=== PATIENT | female | born 1995 | race Caucasian/White ===

== ENCOUNTER 2017-04-22 08:00 | Inpatient (IN) ==
[2017-04-22] MEDS ORDERED: miSOPROStol 25 MCG TABLET VG PRN (08:32)
[2017-04-22] MEDS ORDERED: Famotidine 20 MG/2 ML VIAL IVP PRN (08:32)
[2017-04-22] MEDS ORDERED: Metoclopramide 10 MG/2 ML VIAL IVP PRN (08:32)
[2017-04-22] MEDS ORDERED: *HR* Nalbuphine 20 MG/ML AMPUL IVP PRN (08:32)
[2017-04-22 08:46] LABS: Basophils % 0.3 %; Eosinophils # 0.2 K/mcL (0.0-0.6); Eosinophils % 1.5 %; Hematocrit 34.2 % (35.3-44.9); Hemoglobin 10.2 g/dL (11.5-15.4); Immature Granulocytes % 0.6 % (0-4); Lymphocytes # 3.5 K/mcL (0.6-4.6); Mean Corpuscular HGB Conc 29.8 g/dL (31.6-35.5); Mean Corpuscular Hemoglobin 22.8 pg (28.0-33.3); Mean Corpuscular Volume 76.5 fL (83.0-100.0); Mean Platelet Volume 10.9 fL (9.4-12.4); Monocytes # 1.2 K/mcL (0.0-1.3); Monocytes % 8.1 %; Neutrophils # 9.5 K/mcL (1.6-8.9); Platelet Count 389 K/mcL (140-400); Red Blood Count 4.47 M/mcL (3.82-4.97); Red Cell Distribution Width 15.6 % (11.5-14.5); Segmented Neutrophils % 65.5 %
[2017-04-22 08:54] LABS: Amphetamine Screen,Urine Negative ng/mL (Cutoff=1000); Barbiturate Screen,Urine Negative ng/mL (Cutoff=200); Benzodiazepines Screen,Urine Negative ng/mL (Cutoff=200); Cannabinoid Screen,Urine Negative ng/mL (Cutoff = 50); Cocaine Screen,Urine Negative ng/mL (Cutoff= 300); Opiate Screen,Urine Negative ng/mL (Cutoff=300); Phencyclidine Screen,Urine Negative ng/mL (Cutoff=25)
[2017-04-22] MEDS: Ringers Solution, Lactated 1,000 ML IVC SCH ×2 (09:19→20:16)
--- NOTE | 2017-04-22 09:27 | OB/GYN History & Physical ---
Date of Encounter: 04/22/17 Time of Encounter: 09:25 Assessment and Plan (1) First in adolescent 16 years of age or older in third trimester Current visit: Yes Status: Acute (2) Postmaturity , 40-42 weeks gestation Current visit: Yes Status: Acute (3) Elective induction of labor planned Current visit: Yes Status: Acute Plan is to induce patient with a Lopez catheter and Cytotec and to anticipate vaginal delivery History of Present Illness HPI: Ms. Gutierrez is a 21 year old female 1 para 0 at 40-3/7 weeks by a 9 and 0 some pelvic ultrasound who presented for induction of labor secondary to post dates. Patient was advised if she got past the due date we would find a time to bring her in and deliver her. Patient was a good 2 cm in the office she denies any leaking of fluid still having good movement occasional contractions no bleeding or discharge. Patient is A+ rubella negative GBS negative. Patient will need a rubella shot prior to leaving the hospital. Past Med Surg Social Fam HX - Past Medical History Source: patient, old records reviewed Medical history: no medical history Psychiatric history: no psych history - Past Surgical History Surgical History: other ([place] teeth, knee surgery) - Social History Smoking Status: Former smoker Smokeless Tobacco Status: No Alcohol use: none Drug use: none Occupational status: unemployed Current living situation: Home - Independent Activity Level: Independent ambulation Recent Out of Country Travel Within the Last 8 Weeks: No Exposure or Possible Exposure to Illness During Travel: No Obstetrical History - Pregnancies : 1 Para: 0 Medications and Allergies Ranitidine HCl 150 mg PO DAILY 04/22/17 [History] Tylenol 650 mg PO PRN PRN 04/22/17 [History] 3 Allergy/AdvReac Type Severity Reaction Status Date / Time No Known Allergies Allergy Verified 04/22/17 08:30 Review of System OB All systems PM: reviewed and no additional remarkable complaints except as stated Exam - Constitutional Constitutional: well developed, well nourished, no acute distress, average body habitus - HEENT HEENT: EOMI, PERRL, Mucus Membranes Moist - Neck Neck exam: full ROM - Lungs Respiratory exam: CTAB - Cardiovascular Cardiovascular exam: RRR - Abdomen Abdomen: Present: bowel sounds normal, gravid - Cervix Dilation: 2 Effacement: 80 Station: -2 - Comments Comments: Lopez catheter placed with 30 mL balloon inflated and 25 g of Cytotec placed in the posterior fornix. heart tones 140s reactive occasional contractions and Results Result Diagrams: 04/22/17 08:38 Abnormal lab results WBC 14.5 K/mcL (4.3-11.1) H 04/22/17 08:38 Hgb 10.2 g/dL (11.5-15.4) L 04/22/17 08:38 Hct 34.2 % (35.3-44.9) L 04/22/17 08:38 MCV 76.5 fL (83.0-100.0) L 04/22/17 08:38 MCH 22.8 pg (28.0-33.3) L 04/22/17 08:38 MCHC 29.8 g/dL (31.6-35.5) L 04/22/17 08:38 RDW 15.6 % (11.5-14.5) H 04/22/17 08:38 Neutrophils # 9.5 K/mcL (1.6-8.9) H 04/22/17 08:38 All other labs normal. - VTE Reasons for not Prescribing Prophylaxis: Treatment not Indicated - Low risk for VTE
--- NOTE | 2017-04-22 10:57 | Anesthesia Evaluation PreOp ---
Date of Encounter: 04/22/17 Time of Encounter: 10:56 - Past History Planned Operation: NATHAN Cardiac History: Denies any Significant Hx Pulmonary History: Denies Any Significant HX BUSINESS CONTINUITY STRATEGY DIRECTOR History: Denies Any Significant HX Other Medical History: Denies Any Significant HX Anesthesia History: No Prior Anesthetic Complications Alcohol Use: none Drug use: none Medications and Allergies Ranitidine HCl 150 mg PO DAILY 04/22/17 [History] Tylenol 650 mg PO PRN PRN 04/22/17 [History] 3 Allergy/AdvReac Type Severity Reaction Status Date / Time No Known Allergies Allergy Verified 04/22/17 08:30 - Meds/Allergy Pre-op Review Medications Reviewed: Yes Allergies Reviewed: Yes Beta Blockers on Current Med List: No Anesthesia Results - Labs 04/22/17 08:38 Anesthesia Exam Height: 1.65m Weight: 110kg NPO (# of Hours): 5 Pain Scale: 3 Pain Scale Used: Numeric (1 - 10) - HEENT Pupil (Motor): Pupils equal Mallampati: II Teeth: Normal Oral Opening: Greater than 3 - BUSINESS CONTINUITY STRATEGY DIRECTOR LOC: Oriented BUSINESS CONTINUITY STRATEGY DIRECTOR Motor: Normal RUE, Normal LUE, Normal RLE, Normal LLE, Normal Face BUSINESS CONTINUITY STRATEGY DIRECTOR Sensory: Normal: RUE, LUE, RLE, LLE, Face - Cardiac Rhythm: Regular Murmur: None JVD: No Carotid Bruit: No - Pulmonary Breath Sounds: bilateral Clear Respiratory Effort: Symmetrical Anesthesia Assess/Plan ASA Score: 3 Modified Hedley Scale for Level of Consciousness: Cooperative, oriented, and tranquil Anesthetic Plan: General (plan b), Regional (plan a) Autologous Blood: Yes Monitoring Plan: Standard Monitors
[2017-04-22] MEDS ORDERED: Epidural Premix (fent/bupiv) 110 ML EP ONE ×2 (11:27→20:21)
--- NOTE | 2017-04-22 12:17 | OB Labor Progress Note ---
Date of Encounter: 04/22/17 Time of Encounter: 12:10 Labor Progress Note - Subjective Subjective: Patient's doing well does not want an epidural yet ipke catheter is out - Cervix Cervix: 5/90/-2 AROM clear fluid - Heart Tones Heart Tones: heart tones 140s reactive - [place]: Contractions every 2 minutes - Plan Plan: We will continue current care we will get epidural when patient's more uncomfortable plan is to anticipate vaginal delivery
--- NOTE | 2017-04-22 14:03 | Anesthesia Procedures ---
Date of Encounter: 04/22/17 Time of Encounter: 14:01 Procedures: Anesthesia - Epidural/Spinal Patient ID/Chart reviewed: Yes Patient examined: Yes OB Eval: Gestational age: 40.3 OB Eval: : 1 OB Eval: Hx Para: 0 OB Eval: Dilated at (cm): 5 OB Eval: Contractions: Non-stressed pattern Consent Obtained: Yes Supplemental Oxygen: None/Room Air Site Prep: Aseptic Technique, Sterile prep and drape, Povidone-Iodine 1% Patient position: upright Local Anesthetic: Lidocaine 1% Amount of Local Anesthetic used: 3 Touhy Needle Gauge: 18 Touhy Needle Depth (cm): 8 Catheter Depth at Skin (cm): 19 Test Dose (1.5% Lido + Epi): Volume given (mls): 5 Test Dose Result: Negative Loading Dose: Other: 5ml of epidural pharm bag premix solution Loading Dose Administered: Thru Catheter Infusion Med: 0.125% Bupivacaine w/ 2 mcg/ml Fentanyl Infusion Rate (mls/hr): 14 ([id number]) Catheter Secured in Place: Tegaderm, Tape Interspace Used: L4-L5 Loss of Resistance (ANNIE): Yes Blood: No CSF: No Paresthesia: No Procedure: pt tolerated procedure well. no complications. vss. fhr stable.
[2017-04-22] MEDS ORDERED: Ondansetron 4 MG/2 ML VIAL IVP PRN (14:39)
--- NOTE | 2017-04-22 14:42 | OB Labor Progress Note ---
Date of Encounter: 04/22/17 Time of Encounter: 14:40 Labor Progress Note - Subjective Subjective: Patient is getting comfortable after her epidural not feeling the contractions anymore - Cervix Cervix: 5/80/-1 - Heart Tones Heart Tones: heart tones 140s reactive contractions every 2 minutes - [place]: Contractions every 2 minutes - Plan Plan: Continue current care and anticipate vaginal delivery
--- NOTE | 2017-04-22 17:51 | OB Labor Progress Note ---
Date of Encounter: 04/22/17 Time of Encounter: 17:45 Labor Progress Note - Subjective Subjective: Patient still very comfortable with her epidural - Cervix Cervix: 5/90/0 - Heart Tones Heart Tones: heart tones 140s reactive - [place]: Contractions every 2-3 minutes irregular - Plan Plan: We will augment with Pitocin plan is to anticipate vaginal delivery
[2017-04-22] MEDS ORDERED: Oxytocin 20 units/ LR 1000 mL 20 UNIT/1,000 ML BAG IVC SCH (18:00)
[2017-04-22] MEDS ORDERED: Famotidine 20 MG/2 ML VIAL IVP ONE (18:58)
[2017-04-22] MEDS ORDERED: Acetaminophen 325 MG TABLET PO ONE (20:06)
--- NOTE | 2017-04-22 20:26 | OB Labor Progress Note ---
Date of Encounter: 04/22/17 Time of Encounter: 20:25 Labor Progress Note - Subjective Subjective: Patient is still comfortable - Cervix Cervix: 6/90/0 - Heart Tones Heart Tones: heart tones 140s reactive - [place]: Contractions every 2-3 minutes and Pitocin at 6 milliunits - Plan Plan: Continue current care and anticipate vaginal delivery
--- NOTE | 2017-04-22 23:56 | OB/GYN Procedure Note ---
Delivery - Delivery Date: 04/22/17 Provider: Angel Davies Intrapartum events: none Delivery induction: pike, misoprostol Delivery augmentation: rupture of membranes, pitocin Delivery monitor: external FHT, external uterine, internal uterine Anesthesia: local, epidural Estimated Blood Loss: 200 - (s) A Delivery Date: 04/22/17 Delivery Time: 23:35 Presentation: vertex Position: KAYLENE Route of delivery: Gender: Male Viability: Viable Pounds: 8 Ounces: 14 Weight Gram: 4.024 kg at 1 minute: 9 at 5 mins: 9 Shoulder Dystocia: not encountered Placenta: spontaneous Cord: 3 umbilical vessels - Repair Episiotomy: none Laceration Description: Periurethral (right), Perineal - 2nd Degree - Complications Delivery complications: none Delivery comments: Patient is a 21-year-old 1 para 0 at 40-3/7 weeks who presented to labor and delivery for induction of labor secondary to postdates states that with favorable cervix. Patient received an epidural and Cytotec epidural fill out about 2 hours after insertion and patient was a good 4 cm that time patient was artificially ruptured when she was 4-5 large amounts of clear fluid. Patient did receive an epidural contractions spaced out had not made any significant cervical change and Pitocin was started. Once contractions got back into her regular Pattern patient started to progress patient became complete and pushed for a short period of time delivering a viable male in right occiput anterior presentation at 2325. There was no nuchal cord, no meconium, infant was bulb suctioned on the abdomen, Apgars were 9 at 1 minute, 9 at 5 months, infant weight was 8 lbs. 14 oz. Placenta was then delivered spontaneously with a three-vessel cord, portable pinch riveter Dr. Davies, anesthesia epidural local, estimated blood loss 200 mL. She had a right periurethral and a second-degree perineal laceration repaired with 3-0 Vicryl in usual fashion on the perineal laceration and 4-0 Vicryl on the periurethral. Cervix vagina was visualized intact. Patient tolerated delivery well needles and sponge counts were correct 3. She will be observed 2 hours before being taken floor. - Disposition Mom disposition: stable in LDR [place] disposition: stable in LDR
[2017-04-23] MEDS ORDERED: Oxytocin 20 units/ LR 1000 mL 20 UNIT/1,000 ML BAG IVC SCH (00:05)
[2017-04-23] MEDS ORDERED: Measles/Mumps/Rubella Vacc 0.5 ML VIAL SQ PRN (00:05)
[2017-04-23] MEDS ORDERED: *HR* HYDROcodone/Acet 5/325 mg TABLET PO PRN (00:05)
[2017-04-23] MEDS ORDERED: Acetaminophen 325 MG TABLET PO PRN (00:05)
[2017-04-23 03:33] LABS: Basophils % 0.2 %; Eosinophils # 0.1 K/mcL (0.0-0.6); Eosinophils % 0.2 %; Hemoglobin 9.4 g/dL (11.5-15.4); Immature Granulocytes % 0.6 % (0-4); Lymphocytes # 2.6 K/mcL (0.6-4.6); Lymphocytes % 11.4 %; Mean Corpuscular HGB Conc 31.3 g/dL (31.6-35.5); Mean Corpuscular Hemoglobin 23.7 pg (28.0-33.3); Mean Corpuscular Volume 75.6 fL (83.0-100.0); Monocytes # 1.4 K/mcL (0.0-1.3); Monocytes % 6.1 %; Platelet Count 297 K/mcL (140-400); Red Blood Count 3.97 M/mcL (3.82-4.97); Red Cell Distribution Width 15.6 % (11.5-14.5); Segmented Neutrophils % 81.5 %
[2017-04-23 03:34] LABS: Basophils # 0.1 K/mcL (0.0-0.2); Neutrophils # 18.4 K/mcL (1.6-8.9)
[2017-04-23] MEDS: Prenatal Vit/FA 1 EACH TABLET PO SCH (07:38)
[2017-04-23] MEDS: Famotidine 20 MG TABLET PO SCH (07:38)
--- NOTE | 2017-04-23 08:58 | OB/GYN Progress Note ---
Date of Encounter: 04/23/17 Time of Encounter: 08:56 - Assessment and Plan (1) (normal spontaneous vaginal delivery) Current Visit: Yes Status: Acute Doing well s/p . Cont. post care. Subjective - Subjective Principal diagnosis: s/p Interval history: Doing well s/p . Cont. post care. Objective - Latest Vital Signs Latest vital signs: Vital Signs Temp Pulse Resp BP Pulse Ox 04/23/17 07:42 16 04/23/17 07:30 98.2 F 77 16 99/61 04/23/17 03:41 98 F 77 18 93/54 97 04/23/17 02:46 98.3 F 86 18 107/65 98 04/23/17 01:57 97.7 F 79 16 101/64 97 Intake and Output 04/22/17 04/23/17 04/23/17 23:59 07:59 15:59 Intake Total 1000 / 1000 400 / 400 Output Total 2125 / 2125 Balance 1000 / 1000 -1725 / -1725 Intake: IV Fluids 1000 / 1000 Lactated Ringers 1,000 ML 1000 / 1000 @ 125 mls/hr IVC .Q8H ROWDY Rx#:[id number] Oral 400 / 400 Output: Urine 1000 / 1000 Estimated Blood Loss 200 / 200 Catheter 925 / 925 Other: Weight 119.4 kg Patient Weight 04/23/17 23:59 Weight 119.4 kg - Exam Lungs: bilateral: normal Chest: Normal S1, Normal S2 Extremities: Present: normal Uterus Position: 2 Fingers Below Umbilicus - Labs Labs: Laboratory Results - last 24 hr 04/23/17 04/23/17 03:26 06:47 WBC 22.6 H D RBC 3.97 Hgb 9.4 L Hct 30.0 L MCV 75.6 L MCH 23.7 L MCHC 31.3 L RDW 15.6 H Plt Count 297 MPV 11.0 Immature Gran % 0.6 Seg Neutrophils % 81.5 Lymphocytes % 11.4 Monocytes % 6.1 Eosinophils % 0.2 Basophils % 0.2 Neutrophils # 18.4 H Lymphocytes # 2.6 Monocytes # 1.4 H Eosinophils # 0.1 Basophils # 0.1 POC Glucose 62
[2017-04-23] MEDS: Ibuprofen 600 MG TABLET PO PRN (14:35)
[2017-04-24] MEDS: Ibuprofen 600 MG TABLET PO PRN ×2 (01:07→07:58)
[2017-04-24] MEDS: Prenatal Vit/FA 1 EACH TABLET PO SCH (07:58)
[2017-04-24] MEDS: Famotidine 20 MG TABLET PO SCH (07:58)
[2017-04-24 08:27] VITALS: BP 100/58
--- NOTE | 2017-04-24 08:55 | Discharge Summary ---
Date of Encounter: 04/24/17 Time of Encounter: 08:53 - Discharge Diagnosis (1) (normal spontaneous vaginal delivery) Priority: Primary Status: Acute Comments: Meeting all milestones, pain well managed on po pain medication, , desires discharge. - Discharge Medications Prescriptions: Ibuprofen [Motrin] 600 mg PO Q6HR PRN #60 tab PRN Reason: Cramping Docusate [Colace] 100 mg PO BID #60 Ferrous Sulfate 325 mg PO DAILY #60 tab Home Medications: Ranitidine HCl 150 mg PO DAILY 04/22/17 [History] Tylenol 650 mg PO PRN PRN 04/22/17 [History] Acetaminophen [Tylenol] 650 mg PO Q6HR PRN tab 04/24/17 [Rx] Docusate [Colace] 100 mg PO BID #60 04/24/17 [Rx] Ferrous Sulfate 325 mg PO DAILY #60 tab 04/24/17 [Rx] Ibuprofen [Motrin] 600 mg PO Q6HR PRN #60 tab 04/24/17 [Rx] Vit/FA 1 each PO DAILY tab 04/24/17 [Rx] Allergies/Adverse Reactions: 3 Allergy/AdvReac Type Severity Reaction Status Date / Time No Known Allergies Allergy Verified 04/22/17 08:30 Data Procedures and tests throughout hospitalization: Laboratory Tests 04/22/17 04/22/17 04/23/17 08:38 08:38 03:26 WBC 14.5 H 22.6 H D RBC 4.47 3.97 Hgb 10.2 L 9.4 L Hct 34.2 L 30.0 L MCV 76.5 L 75.6 L MCH 22.8 L 23.7 L MCHC 29.8 L 31.3 L RDW 15.6 H 15.6 H Plt Count 389 297 MPV 10.9 11.0 Immature Gran % 0.6 0.6 Seg Neutrophils % 65.5 81.5 Lymphocytes % 24.0 11.4 Monocytes % 8.1 6.1 Eosinophils % 1.5 0.2 Basophils % 0.3 0.2 Neutrophils # 9.5 H 18.4 H Lymphocytes # 3.5 2.6 Monocytes # 1.2 1.4 H Eosinophils # 0.2 0.1 Basophils # 0.0 0.1 POC Glucose Urine Opiates Screen Negative Ur Barbiturates Screen Negative Ur Phencyclidine Scrn Negative Ur Amphetamines Screen Negative U Benzodiazepines Scrn Negative Urine Cocaine Screen Negative U Marijuana (THC) Screen Negative 04/23/17 06:47 WBC RBC Hgb Hct MCV MCH MCHC RDW Plt Count MPV Immature Gran % Seg Neutrophils % Lymphocytes % Monocytes % Eosinophils % Basophils % Neutrophils # Lymphocytes # Monocytes # Eosinophils # Basophils # POC Glucose 62 Urine Opiates Screen Ur Barbiturates Screen Ur Phencyclidine Scrn Ur Amphetamines Screen U Benzodiazepines Scrn Urine Cocaine Screen U Marijuana (THC) Screen Date of admission: 04/22/17 08:01 Primary care physician: PCP NONE Consults: 04/23/17 00:05 Consult to [facility] [CONS] Routine Comment: Vaginal delivery, consult needed Discharging clinician: Ana Mitchell Anticipated date of discharge: 04/24/17 - Patient Status Disposition: Home, Self-Care Condition: Good Functional capacity at discharge: independent ambulation Overall status at discharge: patient is back to baseline - Discharge Instructions Follow Up With: KEVIN,PCP [Primary Care Provider] - Angel Davies, DO [Partnered Physician] - - Diet and Activity Activity: resume usual activities as tolerated Diet: regular diet Hospital Course Reason for admission: induction of labor, IUP at term Delivery: Episiotomy: none Laceration: 2nd degree Other procedures: none complications: none Discharge diagnosis: IUP at term delivered [place] baby: male Hospital course: Delivery - Delivery Date: 04/22/17 Provider: Agnel Davies Intrapartum events: none Delivery induction: pike, misoprostol Delivery augmentation: rupture of membranes, pitocin Delivery monitor: external FHT, external uterine, internal uterine Anesthesia: local, epidural Estimated Blood Loss: 200 - (s) Infant A Infant Delivery Date: 04/22/17 Delivery Time: 23:35 Presentation: vertex Position: KAYLENE Route of delivery: Gender: Male Viability: Viable Pounds: 8 Ounces: 14 Weight Gram: 4.024 kg at 1 minute: 9 at 5 mins: 9 Shoulder Dystocia: not encountered Placenta: spontaneous Cord: 3 umbilical vessels - Repair Episiotomy: none Laceration Description: Periurethral (right), Perineal - 2nd Degree - Complications Delivery complications: none Delivery comments: Patient is a 21-year-old 1 para 0 at 40-3/7 weeks who presented to labor and delivery for induction of labor secondary to postdates states that with favorable cervix. Patient received an epidural and Cytotec epidural fill out about 2 hours after insertion and patient was a good 4 cm that time patient was artificially ruptured when she was 4-5 large amounts of clear fluid. Patient did receive an epidural contractions spaced out had not made any significant cervical change and Pitocin was started. Once contractions got back into her regular Pattern patient started to progress patient became complete and pushed for a short period of time delivering a viable male in right occiput anterior presentation at 2325. There was no nuchal cord, no meconium, was bulb suctioned on the abdomen, Apgars were 9 at 1 minute, 9 at 5 months, infant weight was 8 lbs. 14 oz. Placenta was then delivered spontaneously with a three-vessel cord, pe electrical engineer Dr. Davies, anesthesia epidural local, estimated blood loss 200 mL. She had a right periurethral and a second-degree perineal laceration repaired with 3-0 Vicryl in usual fashion on the perineal laceration and 4-0 Vicryl on the periurethral. Cervix vagina was visualized intact. Patient tolerated delivery well needles and sponge counts were correct 3. She will be observed 2 hours before being taken floor. - Disposition Mom disposition: stable in PP and appropriate for discharge Time Attestation: Total time spent providing and/or coordinating discharge services: Time Spent: Less than 30 minutes Exam - Constitutional Vitals: Temp Pulse Resp BP Pulse Ox 97.7 F 70 18 100/58 98 04/24/17 07:30 04/24/17 07:30 04/24/17 07:30 04/24/17 07:30 04/23/17 21:05 General appearance IM: A&O X 3 - Respiratory Respiratory exam: Present: CTAB - Cardiovascular Cardiovascular exam IM: Present: RRR - GI/Abdominal GI/Abdominal exam IM: normal bowel sounds, soft - Uterine Tone: Firm Uterus Position: At Umbilicus - Extremities Exam Extremities exam IM: Present: normal capillary refill, normal inspection - Neurological Exam Neurological exam: normal gait, oriented X3 - Psychiatric Additional comments: reports good mood.
== END 2017-04-24 13:27 | disposition home or self-care (01) | DRG 560 ==
LOC: 1NENULAB 08:01 → 1NENUOBS 04-23 01:41
PROVIDERS: ADMIT Obstetrics & Gynecology; ATTEND Obstetrics & Gynecology

== ENCOUNTER → 2019-10-17 18:23 | Observation (INO) | END | disposition home or self-care (01) | LOC: 1NENULAB | PROVIDERS: ADMIT Advanced Practice Midwife; ATTEND Advanced Practice Midwife ==